=== PATIENT | male | born 1970 | race Caucasian/White ===

== ENCOUNTER 2018-06-27 09:34 | Emergency (ER) | payer BC ==
[~2018-06-27] VITALS: Ht 190.5 cm; Wt 88.1 kg
[~2018-06-27 09:34] MED LIST: FLEXERIL5 MG PO; MOTRIN600 MG PO; PERCOCET 5/31 TABLET PO
[2018-06-27 09:37] VITALS: BP 107/72
== END 2018-06-27 13:00 | disposition home or self-care (01) ==
LOC: EME 09:34
DX: S60.512A Abrasion of left hand, initial encounter (principal); S01.81XA Laceration without foreign body of other part of head, initial encounter; W18.30XA Fall on same level, unspecified, initial encounter; Y93.73 Activity, racquet and hand sports; Z88.0 Allergy status to penicillin
CPT/HCPCS: 99281; 99284